=== PATIENT | female | born 1950 | race Two or more races ===

== ENCOUNTER 2019-05-16 22:06 | Emergency (ER) | payer MEDICARE, BC ==
[~2019-05-16] VITALS: Ht 165.1 cm; Wt 63.0 kg
[2019-05-16 22:17] VITALS: BP 133/79
== END 2019-05-16 22:44 | disposition home or self-care (01) ==
LOC: ER 22:10
DX: R23.4 Changes in skin texture (principal); E05.90 Thyrotoxicosis, unspecified without thyrotoxic crisis or storm; Z88.2 Allergy status to sulfonamides